=== PATIENT | male | born 1985 | race Caucasian/White ===

== ENCOUNTER 2019-08-15 07:20 | Emergency (ER) | payer BC ==
[~2019-08-15] VITALS: Ht 177.8 cm; Wt 68.2 kg
[2019-08-15 08:00] LABS: HEMATOCRIT 47.9 % (42.0-52.0); HEMOGLOBIN 15.8 g/dL (13.5-18.0); MEAN CELL VOLUME 93 fl (78-100); MEAN CORPUSCULAR HEMOGLOBIN 31 pg (27-31); MEAN CORPUSCULAR HGB CONC 33 g/dL (33-37); MEAN PLATELET VOLUME 10.4 fl (7.4-10.4); PLATELET COUNT 183 K/mm3 (130-400); RED BLOOD COUNT 5.13 M/mm3 (4.20-5.60); RED CELL DISTRIBUTION WIDTH 12.8 % (11.5-14.5); WHITE BLOOD COUNT 6.2 K/mm3 (4.8-10.8)
[2019-08-15 08:05] LABS: URINE APPEARANCE CLOUDY; URINE BILIRUBIN NEGATIVE (NEGATIVE); URINE BLOOD 250 ery/uL (NEGATIVE); URINE COLOR YELLOW; URINE GLUCOSE NEGATIVE (NEGATIVE); URINE KETONE NEGATIVE (NEGATIVE); URINE LEUKOCYTE ESTERASE NEGATIVE (NEGATIVE); URINE MUCUS PRESENT (NOT PRESENT); URINE NITRATE NEGATIVE (NEGATIVE); URINE PROTEIN(semi-quant) TRACE mg/dL (NEGATIVE); URINE UROBILINOGEN NORMAL (NORMAL)
[2019-08-15 08:05] LABS: ALBUMIN 4.2 g/dL (3.5-5.0)
[2019-08-15 08:07] LABS: CALCIUM 9.1 mg/dL (8.3-10.5)
[2019-08-15 08:08] LABS: TOTAL PROTEIN 6.7 g/dL (6.4-8.3)
[2019-08-15 08:10] LABS: TOTAL BILIRUBIN 0.3 mg/dL (0.2-1.2)
[2019-08-15 08:13] LABS: LYMPHOCYTE 35 % (20-51); MONOCYTE 13 % (3-10); NEUTROPHILS 45 % (42-75)
[2019-08-15] MEDS ORDERED: MIRALAX119 GM PO ×2 (10:08→10:23)
[2019-08-15] MEDS ORDERED: NORCO 325 MG-51 TA1 PO (10:08)
[2019-08-15 10:24] VITALS: BP 115/91
== END 2019-08-15 10:25 | disposition home or self-care (01) ==
LOC: ED 07:20
PROVIDERS: Nurse Practitioner Primary Care
DX: K59.00 Constipation, unspecified (principal)
CPT/HCPCS: J1885; J2270; J2405